=== PATIENT | male | born 1985 | race Caucasian/White ===

== ENCOUNTER 2017-12-23 15:05 | Emergency (ER) | payer SELFPAY ==
[~2017-12-23] VITALS: Ht 182.9 cm; Wt 79.4 kg
[2017-12-23] MEDS ORDERED: KETOROLAC 30 MG/ML VIAL IVP ONE (15:45)
[2017-12-23] MEDS ORDERED: ANTACID SUSP 30 ML UDC (MYLANTA) PO ONE (15:45)
[2017-12-23] MEDS ORDERED: LIDOCAINE 2% VISCOUS 15 ML UDC PO ONE (15:45)
--- NOTE | 2017-12-23 15:45 | ED Chest Pain ---
General Chief Complaint: Chest Pain Stated Complaint: CHEST PAIN Source: patient Exam Limitations: no limitations History of Present Illness Date Seen by Provider: Dec 23, 2017 Time Seen by Provider: 15:42 Initial Comments To ER with reports of central chest pain. Began this afternoon at about 2 PM. It 's been intermittent throughout the day today prior to 2 PM but constant since 2 PM. Pain seems to be worse when sitting down and better when standing up. No history of this. He is a smoker about one half pack of cigarettes per day. Moved to [place] from [place] in September 2016. 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 He has an appointment on Tuesday to establish care with Dr. Ricketts at [facility]. He just finished antibiotics and steroids yesterday for bronchitis. He does report worse than usual acid reflux for the past few days. Timing/Duration: intermittent Severity/Quality: moderate Location: central Radiation: no radiation ASA po GETTERING FILAMENT MACHINE OPERATOR: No NTG SL GETTERING FILAMENT MACHINE OPERATOR: No Allergies and Home Medications Allergies Coded Allergies: No Known Drug Allergies (Unverified , 12/23/17) Home Medications Escitalopram Oxalate 10 Mg Tablet, (Reported) Review of Systems Constitutional: see HPI EENTM: No Symptoms Reported Respiratory: See HPI, Cough Cardiovascular: See HPI, Chest Pain Gastrointestinal: No Symptoms Reported Genitourinary: No Symptoms Reported Musculoskeletal: no symptoms reported Skin: no symptoms reported Psychiatric/Neurological: No Symptoms Reported Endocrine: No Symptoms Reported Hematologic/Lymphatic: No Symptoms Reported Past Ffngqcv-Fvwpsk-Fgufsi Hx Patient Social History Alcohol Use: Regular Use Alcohol Beverage of Choice: Beer, Whiskey Recreational Drug Use: No Smoking Status: Current Everyday Smoker Recent Foreign Travel: No Contact w/Someone Who Travel: No Recent Hopitalizations: No Physical Abuse: No Sexual Abuse: No Mistreated: No Fear: No Immunizations Up To Date Tetanus Booster (TDap): Unknown Seasonal Allergies Seasonal Allergies: No Surgeries History of Surgeries: Yes Surgeries: Nose Respiratory History of Respiratory Disorde: Yes Respiratory Disorders: Asthma Cardiovascular Cardiac Disorders: High Cholesterol Neurological History of Neurological Disord: No Genitourinary History of Genitourinary Disor: No Gastrointestinal History of Gastrointestinal Di: Yes Gastrointestinal Disorders: Gastroesophageal Reflux Musculoskeletal History of Musculoskeletal Dis: No Endocrine History of Endocrine Disorders: No HEENT History of HEENT Disorders: No Cancer History of Cancer: No Psychosocial History of Psychiatric Problem: No Suicide Risk Score: 0 Integumentary History of Skin or Integumenta: No Physical Exam Vital Signs Vital Signs - First Documented 12/23/17 15:10 Temp 98.0 Pulse 85 Resp 19 B/P (MAP) 151/97 (115) Pulse Ox 99 Capillary Refill : Less Than 3 Seconds General Appearance: No Apparent Distress, WD/WN, Anxious HEENT: PERRL/EOMI, TMs Normal Respiratory: Normal Breath Sounds, No Accessory Muscle Use, No Respiratory Distress Gastrointestinal: Normal Bowel Sounds, Non Tender, Soft Extremity: Normal Capillary Refill, Normal Inspection Neurologic/Psychiatric: Alert, Oriented x3, No Motor/Sensory Deficits Skin: Normal Color, Warm/Dry Progress/Results/Core Measures Results/Orders Lab Results Laboratory Tests Test 12/23/17 15:20 Range/Units White Blood Count 9.9 4.3-11.0 10^3/uL Red Blood Count 4.57 4.35-5.85 10^6/uL Hemoglobin 14.8 13.3-17.7 G/DL Hematocrit 42 40-54 % Mean Corpuscular Volume 91 80-99 FL Mean Corpuscular Hemoglobin 32 25-34 PG Mean Corpuscular Hemoglobin Concent 36 32-36 G/DL Red Cell Distribution Width 13.1 10.0-14.5 % Platelet Count 299 130-400 10^3/uL Mean Platelet Volume 8.9 7.4-10.4 FL Neutrophils (%) (Auto) 52 42-75 % Lymphocytes (%) (Auto) 36 12-44 % Monocytes (%) (Auto) 10 0-12 % Eosinophils (%) (Auto) 1 0-10 % Basophils (%) (Auto) 0 0-10 % Neutrophils # (Auto) 5.2 1.8-7.8 X 10^3 Lymphocytes # (Auto) 3.6 1.0-4.0 X 10^3 Monocytes # (Auto) 1.0 0.0-1.0 X 10^3 Eosinophils # (Auto) 0.1 0.0-0.3 10^3/uL Basophils # (Auto) 0.0 0.0-0.1 10^3/uL Prothrombin Time 12.9 12.2-14.7 SEC INR Comment 1.0 0.8-1.4 Activated Partial Thromboplast Time 23 L 24-35 SEC D-Dimer 0.28 0.00-0.49 UG/ML Sodium Level 137 135-145 MMOL/L Potassium Level 3.2 L 3.6-5.0 MMOL/L Chloride Level 102 98-107 MMOL/L Carbon Dioxide Level 25 21-32 MMOL/L Anion Gap 10 5-14 MMOL/L Blood Urea Nitrogen 14 7-18 MG/DL Creatinine 1.15 0.60-1.30 MG/DL Estimat Glomerular Filtration Rate > 60 BUN/Creatinine Ratio 12 Glucose Level 82 70-105 MG/DL Calcium Level 8.9 8.5-10.1 MG/DL Magnesium Level 2.1 1.8-2.4 MG/DL Total Bilirubin 0.5 0.1-1.0 MG/DL Aspartate Amino Transf (AST/SGOT) 25 5-34 U/L Alanine Aminotransferase (ALT/SGPT) 59 H 0-55 U/L Alkaline Phosphatase 46 40-136 U/L Myoglobin 34.1 10.0-92.0 NG/ML Troponin I < 0.30 <0.30 NG/ML B-Type Natriuretic Peptide < 10.0 <100.0 PG/ML Total Protein 6.8 6.4-8.2 GM/DL Albumin 4.1 3.2-4.5 GM/DL My Orders Orders - KATERINE AGUILAR APRN Ekg Tracing (12/23/17 15:22) Cbc With Automated Diff (12/23/17 15:33) Magnesium (12/23/17 15:33) Chest 1 View, Ap/Pa Only (12/23/17 15:33) Cardiac Profile 1 (12/23/17 15:33) Comprehensive Metabolic Panel (12/23/17 15:33) Myoglobin Serum (12/23/17 15:33) Protime With Inr (12/23/17 15:33) Partial Thromboplastin Time (12/23/17 15:33) O2 (12/23/17 15:33) Monitor-Rhythm Ecg Trace Only (12/23/17 15:33) Lipid Panel (12/24/17 06:00) Saline Lock/Iv-Start (12/23/17 15:33) BNP (12/23/17 15:33) Fibrin Degradation Products (12/23/17 15:33) Lidocaine 2% Viscous 15 Ml (Xylocaine Vi (12/23/17 15:45) Antacid Suspension (Mylanta Suspension (12/23/17 15:45) Ketorolac Injection (Toradol Injection) (12/23/17 15:45) Famotidine Injection (Pepcid Injection) (12/23/17 16:45) Potassium Chloride (Tablet) (Klor Con Ta (12/23/17 16:45) Medications Given in ED Current Medications Medications Dose Ordered Sig/Sonia Route Start Time Stop Time Status Last Admin Dose Admin Al Hydrox/Mg Hydrox/Simethicone 30 ml ONCE ONCE PO 12/23/17 15:45 12/23/17 15:46 DC 12/23/17 16:10 30 ML Famotidine 20 mg ONCE ONCE IVP 12/23/17 16:45 12/23/17 16:46 DC 12/23/17 16:51 20 MG Ketorolac Tromethamine 30 mg ONCE ONCE IVP 12/23/17 15:45 12/23/17 15:46 DC 12/23/17 16:10 30 MG Lidocaine HCl 15 ml ONCE ONCE PO 12/23/17 15:45 12/23/17 15:46 DC 12/23/17 16:10 15 ML Potassium Chloride 40 meq ONCE ONCE PO 12/23/17 16:45 12/23/17 16:46 DC 12/23/17 16:51 40 MEQ Vital Signs/I&O Vital Sign - Last 12Hours 12/23/17 15:10 Temp 98.0 Pulse 85 Resp 19 B/P (MAP) 151/97 (115) Pulse Ox 99 Departure Communication (Admissions) Progress Notes Pain did improve after the GI cocktail but then returned. Pepcid was ordered. Labs are unremarkable. We will discharge to home. Impression Impression: Primary Impression: Chest pain Additional Impression: GERD (gastroesophageal reflux disease) Disposition: HOME, SELF-CARE Condition: Stable Departure-Patient Inst. Decision time for Depature: 17:04 Referrals: NO,LOCAL PHYSICIAN (PCP/Family) Primary Care Physician Patient Instructions: Chest Pain That Is Not Caused by the Heart (DC) Add. Discharge Instructions: 1. Use [id number]-crg-[id number] Maalox in addition to the prescribed medication 2. Reduce alcohol intake 3. Follow-up with [facility] as scheduled. Return to ER for any worsening symptoms. All discharge instructions reviewed with patient and/or family. Voiced understanding. Scripts Omeprazole (Omeprazole) 40 Mg Capsule. 40 MG PO DAILY, #20 CAP Prov: KATERINE AGUILAR APRN 12/23/17 KATERINE AGUILAR APRN Dec 23, 2017 15:45
[2017-12-23] MEDS ORDERED: ESCI10TA55 (15:54)
[2017-12-23 16:00] LABS: BASOPHILS % (AUTO) 0 % (0-10); EOSINOPHILS # (AUTO) 0.1 10^3/uL (0.0-0.3); EOSINOPHILS % (AUTO) 1 % (0-10); HEMATOCRIT 42 % (40-54); HEMOGLOBIN 14.8 G/DL (13.3-17.7); LYMPHOCYTES # (AUTO) 3.6 X 10^3 (1.0-4.0); LYMPHOCYTES % (AUTO) 36 % (12-44); MEAN CORPUSCULAR HEMOGLOBIN 32 PG (25-34); MEAN CORPUSCULAR HGB CONC 36 G/DL (32-36); MEAN CORPUSCULAR VOLUME 91 FL (80-99); MEAN PLATELET VOLUME 8.9 FL (7.4-10.4); MONOCYTES % (AUTO) 10 % (0-12); NEUTROPHILS # (AUTO) 5.2 X 10^3 (1.8-7.8); NEUTROPHILS % (AUTO) 52 % (42-75); PLATELET COUNT 299 10^3/uL (130-400); RED BLOOD COUNT 4.57 10^6/uL (4.35-5.85); RED CELL DISTRIBUTION WIDTH 13.1 % (10.0-14.5); WHITE BLOOD COUNT 9.9 10^3/uL (4.3-11.0)
[2017-12-23 16:13] LABS: PROTHROMBIN TIME PATIENT 12.9 SEC (12.2-14.7)
[2017-12-23 16:18] LABS: ALANINE AMINOTRANSFERASE 59 U/L (0-55); ALBUMIN 4.1 GM/DL (3.2-4.5); ALKALINE PHOSPHATASE 46 U/L (40-136); BILIRUBIN,TOTAL 0.5 MG/DL (0.1-1.0); BUN/CREATININE RATIO 12; CALCIUM 8.9 MG/DL (8.5-10.1); CARBON DIOXIDE 25 MMOL/L (21-32); CHLORIDE 102 MMOL/L (98-107); CREATININE SERUM 1.15 MG/DL (0.60-1.30); GFR ESTIMATED > 60; GLUCOSE 82 MG/DL (70-105); MAGNESIUM 2.1 MG/DL (1.8-2.4); POTASSIUM 3.2 MMOL/L (3.6-5.0); SODIUM 137 MMOL/L (135-145); TOTAL PROTEIN 6.8 GM/DL (6.4-8.2)
[2017-12-23 16:25] LABS: MYOGLOBIN SERUM 34.1 NG/ML (10.0-92.0)
[2017-12-23] MEDS ORDERED: KCL 10 MEQ TAB (MICRO K) PO ONE (16:45)
[2017-12-23] MEDS ORDERED: FAMOTIDINE 20MG/2ML IV (PEPCID) IVP ONE (16:45)
--- NOTE | 2017-12-23 16:49 | Diagnostic Imaging Report ---
CLINICAL INDICATION: Patient with chest pain. EXAM: Portable chest x-ray, upright view. COMPARISONS: None. FINDINGS: Lungs/pleura: Lungs are clear. There is no pneumothorax. There is no pleural effusion. Mediastinum: Unremarkable. Pulmonary vasculature: Unremarkable. Heart: Unremarkable. Bones/extrathoracic soft tissue: Unremarkable. IMPRESSION: There is no radiographic evidence of acute cardiopulmonary process. Dictated by: Dictated on workstation # [id number]
[2017-12-23] MEDS ORDERED: OMEP40CA36 PO (17:05)
--- OUTSIDE RECORDS SUMMARY | 2017-12-23 17:15 | XMS REPORT ---
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
--- OUTSIDE RECORDS SUMMARY | 2017-12-23 17:15 | XMS REPORT ---
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
--- OUTSIDE RECORDS SUMMARY | 2017-12-23 17:15 | XMS REPORT ---
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
--- OUTSIDE RECORDS SUMMARY | 2017-12-23 17:15 | XMS REPORT ---
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
--- OUTSIDE RECORDS SUMMARY | 2017-12-23 17:15 | XMS REPORT ---
Author Author MARK MASCORRO Organization [facility] Address [address] [place] [address] Care Team Providers Care Helmet Binder Name Role Phone MARK MASCORRO Unavailable PROBLEMS Type Condition ICD9-CM Code SQP00-PB Code Onset Dates Condition Status SNOMED Code Problem Cocaine dependence, in remission F14.21 Active 806364812 Problem Cannabis use disorder, moderate, in early remission, dependence F12.21 Active 285369826 Problem Mild persistent asthma without complication J45.30 Active 133838186 Problem Severe episode of recurrent major depressive disorder, with psychotic features F33.3 Active 49309223 Problem Alcoholism F10.20 Active 8015063 ALLERGIES No Information SOCIAL HISTORY Never Assessed PLAN OF CARE Activity Details Follow Up 2 - 3 Days Reason: VITAL SIGNS MEDICATIONS Unknown Medications RESULTS No Results PROCEDURES Procedure Date Ordered Result Body Site Psychotherapy, patient &/family, 30 minutes, established patient March 29, 2017 IMMUNIZATIONS No Known Immunizations MEDICAL (GENERAL) HISTORY Type Description Date Medical History asthma Surgical History nasal surgery 2001 Hospitalization History pneumonia several times
--- OUTSIDE RECORDS SUMMARY | 2017-12-23 17:15 | XMS REPORT ---
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 Active 034459500 Problem Cannabis use disorder, moderate, in early remission, dependence F12.21 Active 847624234 Problem Mild persistent asthma without complication J45.30 Active 054324587 Problem Severe episode of recurrent major depressive disorder, with psychotic features F33.3 Active 97396840 Problem Alcoholism F10.20 Active 7509655 ALLERGIES No Information SOCIAL HISTORY Never Assessed PLAN OF CARE Activity Details Follow Up 2 - 3 Days Reason: VITAL SIGNS MEDICATIONS Unknown Medications RESULTS No Results PROCEDURES Procedure Date Ordered Result Body Site Psychotherapy, patient &/family, 30 minutes, established patient April 05, 2017 IMMUNIZATIONS No Known Immunizations MEDICAL (GENERAL) HISTORY Type Description Date Medical History asthma Surgical History nasal surgery 2001 Hospitalization History pneumonia several times
--- OUTSIDE RECORDS SUMMARY | 2017-12-23 17:15 | XMS REPORT ---
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
--- OUTSIDE RECORDS SUMMARY | 2017-12-23 17:15 | XMS REPORT ---
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
--- OUTSIDE RECORDS SUMMARY | 2017-12-23 17:15 | XMS REPORT ---
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
--- OUTSIDE RECORDS SUMMARY | 2017-12-23 17:15 | XMS REPORT ---
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
--- OUTSIDE RECORDS SUMMARY | 2017-12-23 17:15 | XMS REPORT ---
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 Unknown Non Drug Allergy Nov, Unknown SOCIAL HISTORY No smoking Hx information available PLAN OF CARE VITAL SIGNS Height 68 in 2016-11-24 Weight 169.6 lbs 2016-11-24 Temperature 98.0 degrees Fahrenheit 2016-11-24 Heart Rate 74 bpm 2016-11-24 Respiratory Rate 18 2016-11-24 BMI 25.78 kg/m2 2016-11-24 Blood pressure systolic 120 mmHg 2016-11-24 Blood pressure diastolic 76 mmHg 2016-11-24 MEDICATIONS Medication Instructions Dosage Frequency Start Date End Date Duration Status Triamcinolone Acetonide 0.1 % Externally Twice a day 1 application to affected area 12h 18 Nov, 2016 Active Albuterol Sulfate HFA 108 (90 Base) MCG/ACT Inhalation every 4 hrs 2 puffs as needed 4h Active RESULTS No Results PROCEDURES Procedure Date Ordered Related Diagnosis Body Site Office Visit, Est Pt., Level 3 Nov 24, 2016 IMMUNIZATIONS No Known Immunizations
--- OUTSIDE RECORDS SUMMARY | 2017-12-23 17:15 | XMS REPORT ---
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
--- OUTSIDE RECORDS SUMMARY | 2017-12-23 17:15 | XMS REPORT ---
Author Author RAYMUNDO BOB [facility] Address [address] [place] [address] Care Team Providers Care Evp Operations Name Role Phone RAYMUNDO BOB Unavailable PROBLEMS Type Condition ICD9-CM Code [id number] Code Onset Dates Condition Status SNOMED Code Problem Cocaine dependence, in remission F14.21 Active 485231768 Problem Cannabis use disorder, moderate, in early remission, dependence F12.21 Active 203045414 Problem Mild persistent asthma without complication J45.30 Active 963671679 Problem Severe episode of recurrent major depressive disorder, with psychotic features F33.3 Active 73889041 Problem Alcoholism F10.20 Active 9600490 ALLERGIES Unknown Allergies SOCIAL HISTORY No smoking Hx information available PLAN OF CARE VITAL SIGNS MEDICATIONS Unknown Medications RESULTS No Results PROCEDURES No Known procedures IMMUNIZATIONS No Known Immunizations
--- OUTSIDE RECORDS SUMMARY | 2017-12-23 17:15 | XMS REPORT ---
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 Active 007670824 Problem Cannabis use disorder, moderate, in early remission, dependence F12.21 Active 319309750 Problem Mild persistent asthma without complication J45.30 Active 247627776 Problem Severe episode of recurrent major depressive disorder, with psychotic features F33.3 Active 44293004 Problem Alcoholism F10.20 Active 0032636 ALLERGIES No Information SOCIAL HISTORY Never Assessed PLAN OF CARE VITAL SIGNS MEDICATIONS Unknown Medications RESULTS No Results PROCEDURES Procedure Date Ordered Result Body Site Alcohol and/or drug services March 29, 2017 IMMUNIZATIONS No Known Immunizations MEDICAL (GENERAL) HISTORY Type Description Date Medical History asthma Surgical History nasal surgery 2001 Hospitalization History pneumonia several times
[2017-12-23 17:34] VITALS: BP 141/100
== END 2017-12-23 17:38 | disposition home or self-care (01) ==
LOC: ER 15:07
DX: R07.89 Other chest pain (principal); K21.9 Gastro-esophageal reflux disease without esophagitis; J45.909 Unspecified asthma, uncomplicated; E78.00 Pure hypercholesterolemia, unspecified; F17.200 Nicotine dependence, unspecified, uncomplicated
CPT/HCPCS: 36415; 71045; 80053; 83735; 83874; 83880; 84484; 85025; 85379; 85610; 85730; 93005; 93041